=== PATIENT | male | born 1965 | race Caucasian/White ===

== ENCOUNTER 2019-04-13 09:18 | Day surgery (SDC) | payer OTHER ==
[2019-04-12 15:03] VITALS: BMI 32.5
[2019-04-13] MEDS ORDERED: Oxymetazoline HCl 0.05% ( 15 ML ) ONE ×2 (09:41→11:46)
[2019-04-13] MEDS ORDERED: hydrALAZINE 20 MG/ML VIAL ONE ×2 (10:06→13:40)
[2019-04-13] MEDS ORDERED: Midazolam HCl 2 mg/2 ml Vial ONE ×2 (10:39→11:48)
[2019-04-13] MEDS ORDERED: Bacitracin Zinc Ointment 30 gm TUBE ONE (11:46)
[2019-04-13] MEDS ORDERED: Lidocaine 1% w/Epinephrine 1:100K 20 ML VIAL ONE (11:46)
[2019-04-13] MEDS ORDERED: HYDROmorphone 2 MG/ML VIAL ONE (11:48)
[2019-04-13] MEDS ORDERED: Fentanyl 100 MCG/2 ML VIAL ONE ×3 (11:48→13:24)
[2019-04-13] MEDS ORDERED: methylPREDNISolone Acetate 40 mg/ml Vial ONE (12:08)
[2019-04-13] MEDS ORDERED: Ferric Subsulfate (ASTRINGYN) 8 ML VIAL ONE (12:08)
[2019-04-13] MEDS ORDERED: Morphine 2 MG/ML SYRINGE ONE (14:50)
[2019-04-13] MEDS ORDERED: Hydrocodone-Acetamin 15 ML UDCUP ONE (15:23)
[2019-04-13] MEDS ORDERED: Ondansetron PF 4 MG/2 ML Vial ONE (15:51)
[2019-04-13] MEDS ORDERED: Lidocaine 1% PF 5 ML VIAL ONE (15:51)
[2019-04-13] MEDS ORDERED: ePHEDrine 50 MG/ML VIAL ONE (15:51)
[2019-04-13] MEDS ORDERED: Dexamethasone 20 MG/5 ML VIAL ONE (15:51)
[2019-04-13] MEDS ORDERED: PROPOFOL 200 MG/20 ML VIAL ONE (15:51)
[2019-04-13] MEDS ORDERED: Labetalol HCl 100 MG/20 ML VIAL ONE (15:51)
[2019-04-13] MEDS ORDERED: Rocuronium Bromide 10 MG/ML (10ML VIAL) ONE (15:51)
--- NOTE | 2019-04-14 11:31 | OP ---
DATE OF PROCEDURE: 04/13/2019 PREOPERATIVE DIAGNOSES: 1. Chronic rhinosinusitis. 2. Nasal septal deviation. 3. Acquired nasal deformity. 4. Bilateral inferior turbinate hypertrophy. 5. Nasal obstruction. 6. Chronic adenotonsillitis. 7. Adenotonsillar hypertrophy. POSTOPERATIVE DIAGNOSES: 1. Chronic rhinosinusitis. 2. Nasal septal deviation. 3. Acquired nasal deformity. 4. Bilateral inferior turbinate hypertrophy. 5. Nasal obstruction. 6. Chronic adenotonsillitis. 7. Adenotonsillar hypertrophy. PROCEDURES PERFORMED: 1. Bilateral endoscopic sinus surgery, total ethmoidectomies. 2. Bilateral endoscopic sinus surgery, maxillary antrostomies. 3. Bilateral endoscopic sinus surgery, frontal sinusotomies. 4. Bilateral endoscopic sinus surgery, sphenoidotomies. 5. Nasal septoplasty. 6. Bilateral inferior turbinate submucosal resection. 7. Tonsillectomy and adenoidectomy. ESTIMATED BLOOD LOSS: 50 mL. COMPLICATIONS: None. ANESTHESIA: GETA. PROCEDURE IN DETAIL: After consent was obtained, the patient was identified, brought to the operating room, and placed on the operating table in the supine position. General endotracheal anesthesia and intravenous access were obtained and we proceeded with positioning the patient for oropharyngeal surgery. Oropharyngeal exposure was obtained with a Maryellen-Walter mouth gag after a head drape was placed and secured with a towel clip. The Maryellen-Walter mouth gag was then suspended from the Thomas tray and palatal elevation was achieved with a red rubber catheter. The right tonsil was addressed first. We used a curved Allis to grasp the tonsil and retract it medially as an anterior pillar incision was made. The retrotonsillar fascial plane was then established and blunt dissection was performed with the suction cautery. Blood vessels were anticipated, identified, and cauterized as they were encountered. Ultimately, dissection was carried to the posterior tonsillar pillar mucosa which was incised hemostatically, as well as the base of tongue connection. The tonsil was then passed off as a specimen and bleeding points within the tonsillar bed were cauterized under direct visualization. We subsequently turned our attention to the contralateral side, where using a similar technique, a near identical procedure was performed. Again, the tonsil was grasped and retracted medially with a curved Allis. The retrotonsillar fascial plane was established and while the anterior pillar was retracted medially. The hemostatic blunt dissection of the tonsil with a suction cautery was performed with blood vessels anticipated, identified, and cauterized as they were encountered. Again, dissection continued to the base of tongue and posterior tonsillar pillar mucosa which was incised in a hemostatic fashion. The tonsillar beds were then carefully inspected and bleeding points were identified and cauterized with a suction cautery. After this portion of the procedure, hemostasis was completely obtained. Under direct mirror visualization, we visualized the adenoid pad. Under direct mirror visualization, we removed the bulk of the adenoid tissue with the adenoid curette. We then packed the nasopharynx for an appropriate period of time with [id number] tonsillar sponges. After a period of observation, we removed the pack. Under indirect mirror visualization, we obtained hemostasis and vaporization of residual adenoid tissue with electrocautery. The patient's oral cavity was copiously irrigated with iced saline and subsequently suctioned. After completion of the procedure, the nasal cavity and oropharynx were irrigated and suctioned as were the gastric contents. The patient was then awakened and transferred to the recovery room where the patient remained in stable condition prior to discharge to Day Stay. Tube was secured in the left lower lip. Patient was then placed in the beach chair position, and Afrin pledgets were placed in the nasal cavity. Injections of 1% lidocaine with 1:100,000 epinephrine were made into the nasal septum as well as the inferior turbinates. Patient was then prepped and draped in standard surgical fashion for nasal surgery. Following this, the Afrin pledgets were removed. A Maximo incision was made on the left nasal septum. Submucoperichondrial dissection was performed. The deviated portions of the septum included portions of the cartilage and the bony septum. These isolated areas were removed using 3 cutting rongeurs. There was noted to be a large dorsal and caudal strut, left intact for support of the nose. The mucoperichondrial flaps were then reapproximated using a 4-0 gut stitch. Any straight pieces of cartilage were crushed prior to this and placed between the mucoperichondrial flaps. Following this, the inferior turbinates were then punctured with a submucosal coblation wand, and submucosal coblations were performed of multiple areas of the inferior portion of the anterior inferior turbinate. Please note that the submucosal microdebrider was used to submucosally resect the anterior and inferior portions of the inferior turbinates bilaterally. Following this, inferior turbinates were gently laterally fractured with a [place] elevator. Following this, a 0 degree endoscope was advanced into the middle meatus. The middle turbinate was then gently medialized using a [place] elevator. The uncinate process was then identified bilaterally and was anteriorly fractured using a ball-ended probe. Following this, the uncinate was removed bilaterally using the 40 degree microdebrider blade through the up-biting Blakesley forceps bilaterally. Following this, the natural maxillary sinus ostia was gently palpated using the ball-ended probe. Following this, the maxillary sinus ostia was widened using the 40 degree microdebrider and the straight [place] forceps bilaterally. Following this, ethmoidal bulla was identified bilaterally and its medial and inferior aspects were punctured and removed using the 0 degree microdebrider. Following this, the grand lamella was identified bilaterally and was punctured into the posterior ethmoidal cells. Working from posterior to anterior, the ethmoidal cells were opened bilaterally using a 40 degree microdebrider blade, a 0-degree microdebrider blade, and the up-biting Blakesley forceps. Following this, the sphenoid sinuses were approached through the previous ethmoidectomies and the natural sphenoid sinus ostia was identified and was noted to be markedly stenotic and inflamed. The 0 degree microdebrider was used to puncture this sphenoid ostia bilaterally and create a wider sphenoid ostia medially and inferiorly using the microdebrider bilaterally. Following this, 45 degree endoscope along with a 40 degree microdebrider blade was used to further open the frontal recess cells and identify the frontal sinus ostia bilaterally, which was widened using the microdebrider bilaterally. Following this, nasal cavity was irrigated. Mirapex was placed within the middle meatus. Judge splints were placed and secured. The patient tolerated the procedure well. Job ID: [id number]
== END 2019-04-13 15:35 | disposition home or self-care (01) ==
LOC: SDC 09:18
PROVIDERS: ATTEND Otolaryngology Plastic Surgery within the Head & Neck
PROC: 099S8ZZ Drainage of Right Frontal Sinus, Via Natural or Artificial Opening Endoscopic (ICD-10-PCS; principal; 2019-04-13)
PROC: 09BL0ZZ Excision of Nasal Turbinate, Open Approach (ICD-10-PCS; principal; 2019-04-13)
PROC: 099Q8ZZ Drainage of Right Maxillary Sinus, Via Natural or Artificial Opening Endoscopic (ICD-10-PCS; principal; 2019-04-13)
PROC: 09TU8ZZ Resection of Right Ethmoid Sinus, Via Natural or Artificial Opening Endoscopic (ICD-10-PCS; principal; 2019-04-13)
PROC: 099T8ZZ Drainage of Left Frontal Sinus, Via Natural or Artificial Opening Endoscopic (ICD-10-PCS; principal; 2019-04-13)
PROC: 09TV8ZZ Resection of Left Ethmoid Sinus, Via Natural or Artificial Opening Endoscopic (ICD-10-PCS; principal; 2019-04-13)
PROC: 099R8ZZ Drainage of Left Maxillary Sinus, Via Natural or Artificial Opening Endoscopic (ICD-10-PCS; principal; 2019-04-13)
PROC: 099W8ZZ Drainage of Right Sphenoid Sinus, Via Natural or Artificial Opening Endoscopic (ICD-10-PCS; principal; 2019-04-13)
PROC: 099X8ZZ Drainage of Left Sphenoid Sinus, Via Natural or Artificial Opening Endoscopic (ICD-10-PCS; principal; 2019-04-13)
PROC: 09BM0ZZ Excision of Nasal Septum, Open Approach (ICD-10-PCS; principal; 2019-04-13)
PROC: 0CTQXZZ Resection of Adenoids, External Approach (ICD-10-PCS; principal; 2019-04-13)
PROC: 0CTPXZZ Resection of Tonsils, External Approach (ICD-10-PCS; principal; 2019-04-13)
DX: J32.9 Chronic sinusitis, unspecified (principal); J34.2 Deviated nasal septum; J34.3 Hypertrophy of nasal turbinates; J34.89 Other specified disorders of nose and nasal sinuses; J35.03 Chronic tonsillitis and adenoiditis; K13.79 Other lesions of oral mucosa
CPT/HCPCS: 88304; 93005; 93010; J0360; J1030; J1100; J1170; J2001; J2250; J2270; J2405; J2704; J3010; J3490